=== PATIENT | male | born 1940 | race Caucasian/White ===

== ENCOUNTER 2016-08-29 06:19 | Day surgery (SDC) | payer BC ==
--- NOTE | ~2016-08-29 | OP ---
Record Of Operation [facility] [address] [place]. [address] NAME: VIBHA PARIKH : 42 STATUS : [facility]#: [id number] AGE: 76 ADM/REG DATE : 08/29/16 MR#: [id number] REPORT SERV DATE: 08/29/16 DICTATED BY: CHADWICK GARCIA DATE: 08/29/16 REPORT STATUS : Draft TRANSCRIBED BY: MODL DATE: 08/29/16 DATE OF PROCEDURE: 08/29/2016 PROCEDURE: Direct laryngoscopy with biopsy, left base of tongue. PREOPERATIVE DIAGNOSES: 1. Irregularity, left base of tongue. 2. Left cervical adenopathy. POSTOPERATIVE DIAGNOSES: 1. Irregularity, left base of tongue. 2. Left cervical adenopathy. ANESTHESIA: General endotracheal. COMPLICATION: None. FINDINGS: The patient was taken to the OR, placed in supine position. Then was anesthetized, prepped, and draped in standard fashion. Direct laryngoscopy performed. The patient had essentially normal-appearing vallecula, epiglottis, right and left true and false vocal cords, and post-arytenoid area. The right base of tongue appeared to be normal. A very small irregularity in the left base of tongue, less than 10 mm. This was somewhat slightly rough and firm to palpation, but no ulceration or true mass effect. Biopsies were obtained. 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 The patient did not undergo removal of his lymph nodes at this time. The patient was awakened, extubated, and taken to recovery room in good condition. PAM/ABHAY Chadwick Garcia M.D. / [id number] CC: [place] M.D.
[~2016-08-29 06:19] MED LIST: AMBIEN CR12.5 MG PO; BENTYL10 PO; CENTRUM TAB1 TAB PO; DIOVAN HC1 PO; DIOVAN HCT PO; DITRO5 PO; DSS PO; FISH-EPA1000 MG PO; L40 PO; LIOR10 PO; LORTAB 5 PO; MOBIC7.5 PO; MYRBETRIQ50 MG PO; NEUR300 PO; OXYCOD PO; OXYCON10 PO; PCET PO; PRILO PO; PROZAC PO; RELA5 PO; TYLENOL ARTH650 MG PO; VESICARE10 MG PO; VITAMIN D1000 UNI1 PO; WELLSR150 PO; ZOCOR20 PO; ZYRTEC ALLGY10 MG PO
[2016-11-09] MEDS ORDERED: NORCO1 TA2 PO (16:22)
[2016-11-09] MEDS ORDERED: FLUCON2 PO (16:24)
[2016-11-10] MEDS ORDERED: L40 PO (10:20)
[2016-11-10] MEDS ORDERED: PRILO PO (10:21)
[2016-11-10] MEDS ORDERED: BENTYL20 PO (10:24)
[2016-11-10] MEDS ORDERED: DIOVAN HCT160 MG/25 PO (10:26)
[2016-11-10] MEDS ORDERED: ZYRTEC ALLGY10 MG PO (10:27)
== END 2016-08-29 11:10 | disposition home or self-care (01) ==
LOC: SDC 06:19
PROVIDERS: Otolaryngology
PROC: 0CBM8ZX Excision of Pharynx, Via Natural or Artificial Opening Endoscopic, Diagnostic (ICD-10-PCS; principal; 2016-08-29 08:15)
DX: D37.05 Neoplasm of uncertain behavior of pharynx (principal); R59.0 Localized enlarged lymph nodes; I10 Essential (primary) hypertension; Z90.5 Acquired absence of kidney; Z85.528 Personal history of other malignant neoplasm of kidney; Z98.890 Other specified postprocedural states; Z98.41 Cataract extraction status, right eye; Z98.42 Cataract extraction status, left eye; Z90.89 Acquired absence of other organs; Z96.1 Presence of intraocular lens; E78.00 Pure hypercholesterolemia, unspecified; M19.90 Unspecified osteoarthritis, unspecified site; M48.06 Spinal stenosis, lumbar region; M50.33 Other cervical disc degeneration, cervicothoracic region; K58.9 Irritable bowel syndrome, unspecified; G95.20 Unspecified cord compression; Z88.1 Allergy status to other antibiotic agents; Z88.8 Allergy status to other drugs, medicaments and biological substances; Z91.041 Radiographic dye allergy status
CPT/HCPCS: 80048; 80076; 85014; 85018; 88305; 88331; 88342; 93005; A9270-GY; J0690; J2250; J2405; J2710; J3010